=== PATIENT | male | born 1980 | race Caucasian/White ===

== ENCOUNTER → 2022-01-09 14:13 | Outpatient (CLI) | payer OTHER, SELFPAY ==
[2022-01-09 16:06] LABS: Alanine Aminotransferase 81 U/L (12-78); Albumin Level 4.4 g/dl (3.5-5.0); Albumin/Globulin Ratio 1.7 (1.1-1.8); Alkaline Phosphatase 87 U/L (38-126); Anion Gap 10.6 mEq/L (5-15); Aspartate Amino Transferase 52 U/L (17-59); Bilirubin,Total 0.2 mg/dl (0.2-1.3); Blood Urea Nitrogen 7 mg/dl (9-20); Calcium 9.5 mg/dl (8.4-10.2); Carbon Dioxide 28 mmol/L (22.0-30.0); Chloride 105 mmol/L (98-107); Estimated Glomerular Filt Rate 82 ml/min (>60); GFR (African American) 99 ML/MIN (>60); Globulin 2.6 g/dL (1.3-3.2); Glucose 106 mg/dl (74-100); Potassium 4.6 mmoL/L (3.5-5.1); Sodium 139 mmol/L (136-145)
[2022-01-09 16:09] LABS: Hemoglobin A1C 5.6 % (4.0-6.0)
[2022-01-09 16:24] LABS: Free Thyroxine Index 2.4 ug/dL (5.93-13.13); T4 (Thyroxine) 7.3 ug/dl (5.53-11.0); Triiodothryronine (T3) Uptake 33 % (23.5-40.5)
[2022-01-09 16:38] LABS: Thyroid Stimulating Hormone 3.07 uIU/mL (0.465-4.68)
[2022-01-09 18:26] LABS: Basophils # 0.1 K/mm3 (0-0.2); Basophils % 1.4 % (0.1-2.0); Eosinophils # 0.2 K/mm3 (0.0-0.4); Eosinophils % 3.1 % (0.1-12.0); Hematocrit 48.2 % (42.0-52.0); Lymphocytes # 2.3 K/mm3 (0.7-4.5); Lymphocytes % 45.2 % (10-50); Mean Corpuscular HGB Conc 33.3 g/dL (31.8-35.4); Mean Corpuscular Hemoglobin 31.5 pg (27.0-31.2); Mean Corpuscular Volume 94.6 fl (80-94); Mean Platelet Volume 12.8 fl (7.4-10.4); Monocytes # 0.4 K/mm3 (0.1-1.0); Monocytes % 7.9 % (1.7-9.3); Neutrophils # 2.2 K/mm3 (1.8-7.8); Neutrophils % 42.5 % (37.0-80.0); Platelet Count 167 K/mm3 (142-424); Red Cell Distribution Width 12.9 % (11.5-17.5); White Blood Count 5.1 K/mm3 (4.8-10.8)
[2022-01-09 18:31] LABS: Iron 121 ug/dL (49-181)
[2022-01-09 18:41] LABS: Total Iron Binding Capacity 325 ug/dL (261-462)
[2022-01-09 18:45] LABS: Vitamin B12 358 pg/mL (239-931)
[2022-01-11 09:20] LABS: Progesterone 0.2 ng/mL (0.0-0.5)
[2022-01-14 20:10] LABS: Testosterone, Total, LC/MS 390.8 ng/dL (264.0-916.0); Testosterone,Free 13.4 pg/mL (6.8-21.5)
[2022-01-18 19:34] LABS: 1,25 Dihydroxy Vitamin D 37 pg/mL (.); 1,25-Dihydroxy, Vitamin D-2 <10 pg/mL (.); 1,25-Dihydroxy, Vitamin D-3 37 pg/mL (.)
== END ==
PROVIDERS: PCP Pediatrics; Visit Provider Nurse Practitioner Psychiatric/Mental Health
DX: Z00.00 Encounter for general adult medical examination without abnormal findings (principal); R53.83 Other fatigue; Z79.899 Other long term (current) drug therapy
CPT/HCPCS: 36415; 80053; 82607; 82652; 83036; 83540; 83550; 84144; 84402; 84403; 84436; 84443; 84479; 85025

== ENCOUNTER → 2023-01-06 16:23 | Outpatient (CLI) | payer OTHER, SELFPAY ==
[2023-01-06 12:49] LABS: Basophils % 0.5 % (0.1-2.0); Eosinophils # 0.1 K/mm3 (0.0-0.4); Eosinophils % 1.3 % (0.1-12.0); Hematocrit 46.3 % (42.0-52.0); Hemoglobin 15.6 g/dL (14.1-18.0); Lymphocytes # 2.6 K/mm3 (0.7-4.5); Lymphocytes % 39.1 % (10-50); Mean Corpuscular HGB Conc 33.6 g/dL (31.8-35.4); Mean Corpuscular Hemoglobin 31.1 pg (27.0-31.2); Mean Corpuscular Volume 92.6 fl (80-94); Mean Platelet Volume 11.9 fl (7.4-10.4); Monocytes # 0.4 K/mm3 (0.1-1.0); Monocytes % 5.7 % (1.7-9.3); Neutrophils # 3.5 K/mm3 (1.8-7.8); Neutrophils % 53.3 % (37.0-80.0); Platelet Count 160 K/mm3 (142-424); White Blood Count 6.5 K/mm3 (4.8-10.8)
[2023-01-06 13:33] LABS: Chloride 103 mmol/L (98-107); Potassium 4.4 mmoL/L (3.5-5.1); Sodium 137 mmol/L (136-145)
[2023-01-06 13:36] LABS: Alanine Aminotransferase 61 U/L (12-78); Albumin Level 4.7 g/dl (3.5-5.0); Albumin/Globulin Ratio 1.6 (1.1-1.8); Alkaline Phosphatase 78 U/L (38-126); Anion Gap 11.4 mEq/L (5-15); Aspartate Amino Transferase 48 U/L (17-59); Bilirubin,Total 0.7 mg/dl (0.2-1.3); Blood Urea Nitrogen 11 mg/dl (9-20); Carbon Dioxide 27 mmol/L (22.0-30.0); Cholesterol 250 mg/dl (140-200); Estimated Glomerular Filt Rate 92 ml/min (>60); GFR (African American) 111 ML/MIN (>60); Globulin 2.9 g/dL (1.3-3.2); Total Protein,Serum 7.6 g/dl (6.3-8.2); Triglycerides 103 mg/dl (30-150); VLDL Cholesterol 21 mg/dL (0-40)
[2023-01-06 13:37] LABS: Calcium 9.1 mg/dl (8.4-10.2); Chol/HDL Ratio 5.7 (1-3.5); Glucose 103 mg/dl (74-100); HDL Cholesterol 44 mg/dl (40-60)
[2023-01-06 13:48] LABS: Direct LDL Cholesterol 160.86 mg/dL (100-129)
[2023-01-06 13:53] LABS: 25-OH Vitamin D, Total 28.2 ng/mL (30-100)
[2023-01-06 14:08] LABS: Thyroid Stimulating Hormone 2.34 uIU/mL (0.465-4.68)
[2023-01-06 14:11] LABS: Prostate Specific Ag Screen 0.5 ng/ml (0.0-4.0)
[2023-01-06 14:30] LABS: Vitamin B12 441 pg/mL (239-931)
== END ==
LOC: LAB.DROPOF 16:23
PROVIDERS: PCP Physician Assistant; Visit Provider Physician Assistant
DX: R42 Dizziness and giddiness (principal); E55.9 Vitamin D deficiency, unspecified; Z79.899 Other long term (current) drug therapy; Z12.5 Encounter for screening for malignant neoplasm of prostate
CPT/HCPCS: 80053; 80061; 82306; 82607; 84443; 85025; G0103

== ENCOUNTER → 2023-01-14 08:36 | Day surgery (SDC) | payer OTHER, SELFPAY ==
--- NOTE | 2023-01-14 08:41 | CA_ITS ---
APPROVED REPORT EXAM: Comprehensive 2D, Doppler, and color-flow Echocardiogram Silk Finisher: Leah Munoz, RCS, RVS Ht: 6 ft 0 in Wt: 272lbs BSA: 2.43 BP: 136/84 mmHg Indications: vertigo, exsmoker 2D Dimensions Aortic Root 3.32 cm LA Volume 67.50 mL Left Atrium 4.57 cm LA Volume Index 27.80 mL/m2 (M/F) 16-34 RVID Base (AP4) 3.54 cm (M/F) 2.5-4.1 EF AP4 54.90 % LVOT 2.32 cm (M/F) 1.5-2.5 GL Strain -17.0 % M-Mode Dimensions RVDd 2.06 cm (0.9-2.6) LVDd 5.56 cm (3.5-5.7) Ao Diam 3.24 cm (2.0-3.7) LVDs 3.85 cm (3.5-5.7) IVSd 0.99 cm (0.6-1.1) PWd 0.88 cm (0.6-1.1) EF (Teich) 57.70% EPSs 0.34 cm FS 30.80% EDV (Teich) 151.20 mL TAPSE 1.93 (<1.7) ESV (Teich) 63.90 mL LV Diastology E Decel Time 167 (160-240 msec) E/A Ratio 1.67 MED E' 7.0 (>= 7 cm/sec) MED A' 8.70 cm/s E'/MED E' Ratio 8.86 (<= 14) LAT E' 6.8 (>= 10 cm/sec) LAT A' 10.10 cm/s E/LAT E' Ratio 9.12 (<= 14) Aortic Valve LVOT Max 86.0 (70-110 cm/s) NIECY Index 1.49 cm2/m2 LVOT VTI 17.50 cm AoV Peak Tony. 110.0 (50-130 cm/s) AO Mean GR. 2.50 (<5 mmHg) AO VTI 20.4 (18-25 cm) NIECY (VTI) 3.63 (2.5-4.5 cm2) Mitral Valve MV E Max Tony. 62.0 (40-130 cm/s) MV A Velocity 37.0 (40-130 cm/s) E/A Ratio 1.67 MV Decel. Time 167 (160-240 ms) Left Ventricle The left ventricle is normal size. The left ventricular systolic function is normal. The left ventricular ejection fraction is within the normal range. There is marked increase in LV wall thickness (IVSd 1.8 cm). There is no LVOT gradient at rest. There is normal LV segmental wall motion. Diastolic function is indeterminate. LVEF is 55%. Right Ventricle The right ventricle is normal size. The right ventricular systolic function is normal. Atria The left atrium size is normal. The right atrium size is normal. There is no Doppler evidence of interatrial shunt. Aortic Valve The aortic valve opens well. There is no aortic valvular stenosis. Trace aortic regurgitation. Mitral Valve The mitral valve is normal in structure. No evidence of mitral valve stenosis. Trace mitral regurgitation. Tricuspid Valve The tricuspid valve leaflets are thin and pliable. Trace tricuspid regurgitation. There is insufficient TR jet to estimate RVSP. Great Vessels IVC is normal in size and collapses >50% with inspiration. Other Information Study Quality: Fair Conclusion Normal biventricular systolic function. Marked increase in LV wall thickness (IVSd 1.8 cm). No significant valvular stenosis or regurgitation. Due to the marked and asymmetric increase in LV wall thickness, further evaluation to rule out HCM with cardiac MRI (HCM protocol) is recommended. Electronically signed by : Mabel Fuentes MD 01/16/2023 22:06:29
[2023-01-14 10:09] VITALS: BMI 36.6
[2023-01-14 10:13] VITALS: BP 164/79; PULSE 74; RESP 17; TEMP 37.2; O2SAT 94
--- NOTE | 2023-01-14 12:23 | EXP.TILT ---
Findings:: PROCEDURE: Tilt Table Test REQUESTING PROVIDER: Jessica Fenton PA-C INDICATION: Recurrent dizziness, orthostatic hypotension based on office blood blood pressures BETA BLOCKERS: None PRE-TEST VITAL SIGNS (supine position): BP 167/77, HR 70 and sinus rhythm, Oxygen Saturation 97% PROCEDURE SUMMARY: Patient was prepped per protocol, IV started, connected to heart, blood pressure and oxygen saturation monitors and safety straps applied. He was then tilted upright at 70 degrees for a total of approximately 14 minutes. Test was terminated at that point due to patient's symptoms and drop in blood pressure and heart rate. After initially being raised upright, his BP dropped to 143/92 and HR increased to 92 bpm, but he remained asymptomatic. Five minutes later (after being upright for 5 minutes) his BP was 160/92 and HR was 86 bpm with still no symptoms. Five minutes later (after 10 minutes upright) his BP was 136/83 and HR was 86 bpm. Two minutes later (after 12 minutes upright) he complained of nausea and dizziness and was noted to be pale and diaphoretic with a drop in both BP (to 106/36) and HR (to 61 bpm). His symptoms were worsening so he was returned to the supine position, which was approximately 14 minutes after being placed upright. After being returned to the supine position his symptoms resolved and BP fay to 134/75 and HR increased to 68 bpm. After several more minutes supine his BP was 142/80 and HR was 77 bpm. He remained in a sinus rhythm throughout and O2Sats ranged from 93 to 94%. CONCLUSIONS: Abnormal tilt table test with evidence of orthostatic hypotension. Asymptomatic 24 mmHg drop in systolic blood pressure upon initially being raised upright, followed several minutes later, by a more dramatic and symptomatic drop in both systolic and diastolic blood pressure, as well as heart rate.
== END ==
LOC: RT 08:37
PROVIDERS: PCP Physician Assistant; Visit Provider Physician Assistant
DX: R42 Dizziness and giddiness (principal)
CPT/HCPCS: 93306

== ENCOUNTER 2023-03-24 10:23 | Outpatient (CLI) | payer OTHER, SELFPAY ==
--- NOTE | 2023-03-24 10:27 | XR_ITS ---
FINAL REPORT TECHNIQUE: AP and lateral views left elbow CLINICAL HISTORY: Left elbow pain COMPARISON: None FINDINGS: LEFT ELBOW: No acute bony abnormality is identified. No evidence of fracture or dislocation is seen. No significant joint effusion is present. The soft tissues are unremarkable. IMPRESSION: Unremarkable left elbow films. Reviewed, Interpreted and Dictated by Nj Aranda III, MD Transcribed by Leah Mccurdy Authenticated and [facility]
== END 2023-03-24 23:59 ==
LOC: RAD 10:24
PROVIDERS: PCP Internal Medicine; Visit Provider Internal Medicine
DX: M25.522 Pain in left elbow (principal)
CPT/HCPCS: 73070

== ENCOUNTER 2023-05-28 08:00 | Outpatient (RCR) | payer OTHER, SELFPAY | END 2023-05-28 08:05 | disposition home or self-care (01) | LOC: OT 08:00 | PROVIDERS: Visit Provider Internal Medicine | DX: M25.522 Pain in left elbow (principal) | CPT/HCPCS: 97165 ==

== ENCOUNTER 2023-08-25 14:37 | Outpatient (CLI) | payer OTHER, SELFPAY ==
[2023-08-25 15:17] LABS: Basophils # 0.1 K/mm3 (0-0.2); Basophils % 1.1 % (0.1-2.0); Eosinophils # 0.2 K/mm3 (0.0-0.4); Hematocrit 46.5 % (42.0-52.0); Hemoglobin 15.9 g/dL (14.1-18.0); Lymphocytes # 3.2 K/mm3 (0.7-4.5); Lymphocytes % 42.1 % (10-50); Mean Corpuscular HGB Conc 34.3 g/dL (31.8-35.4); Mean Corpuscular Hemoglobin 31.5 pg (27.0-31.2); Mean Platelet Volume 11.2 fl (7.4-10.4); Monocytes # 0.5 K/mm3 (0.1-1.0); Monocytes % 6.9 % (1.7-9.3); Neutrophils # 3.6 K/mm3 (1.8-7.8); Neutrophils % 46.9 % (37.0-80.0); Platelet Count 187 K/mm3 (142-424); Red Blood Count 5.06 M/mm3 (4.60-6.20); Red Cell Distribution Width 13.4 % (11.5-17.5); White Blood Count 7.7 K/mm3 (4.8-10.8)
[2023-08-25 15:52] LABS: Alanine Aminotransferase 79 U/L (12-78); Albumin Level 4.4 g/dl (3.5-5.0); Alkaline Phosphatase 73 U/L (38-126); Anion Gap 10.4 mEq/L (5-15); Aspartate Amino Transferase 45 U/L (17-59); Bilirubin,Indirect 0.4 mg/dL (0.0-0.9); Bilirubin,Total 0.4 mg/dl (0.2-1.3); Bilirubin,Unconjugated 0.5 mg/dL (0.0-1.1); Blood Urea Nitrogen 13 mg/dl (9-20); Calcium 9.7 mg/dl (8.4-10.2); Carbon Dioxide 27 mmol/L (22.0-30.0); Chloride 107 mmol/L (98-107); Chol/HDL Ratio 5.4 (1-3.5); Cholesterol 312 mg/dl (140-200); Estimated Glomerular Filt Rate 92 ml/min (>60); GFR (African American) 111 ML/MIN (>60); Glucose 95 mg/dl (74-100); HDL Cholesterol 58 mg/dl (40-60); Potassium 4.4 mmoL/L (3.5-5.1); Sodium 140 mmol/L (136-145); Total Protein,Serum 7.4 g/dl (6.3-8.2); Triglycerides 232 mg/dl (30-150); VLDL Cholesterol 46 mg/dL (0-40)
[2023-08-25 16:03] LABS: Direct LDL Cholesterol 216.86 mg/dL (100-129)
== END 2023-08-25 23:59 | disposition home or self-care (01) ==
PROVIDERS: PCP Internal Medicine; Visit Provider Nurse Practitioner
DX: E78.5 Hyperlipidemia, unspecified (principal)
CPT/HCPCS: 36415; 80048; 80061; 80076; 85025

== ENCOUNTER → 2023-09-17 07:41 | Outpatient (CLI) | payer OTHER, SELFPAY | LOC: SL 07:42 | PROVIDERS: PCP Internal Medicine; Visit Provider Specialist | DX: G47.33 Obstructive sleep apnea (adult) (pediatric) (principal) | CPT/HCPCS: G0399 ==

== ENCOUNTER 2023-10-05 06:18 | Outpatient (CLI) | payer OTHER, SELFPAY ==
--- NOTE | 2023-10-05 | CA_ITS ---
APPROVED REPORT Exam: Exercise Treadmill Technologist: Olga Klein, Ht: 6 ft 0 in Wt: 292 lbs BSA: 2.50 m2 HR: 76 bpm BP: 134/89 mmHg Rhythm: SR Medical History Medications: Xanax,,,,, Epinephrine,,,,, Vraylar,,,,, Cardiac Risk Factors: HTN, Hyperlipidemia, Smoking Stress Test Details Test: Pooja HR Resting HR: 80 bpm Max Heart Rate (APMHR): 176 bpm Max HR Achieved: 160 bpm Target HR (85% APMHR): 150 bpm % of APMHR: 91 Recovery HR: 116 bpm HR response to stress: Normal HR response to stress BP Resting BP: 138.0/85.0 mmHg Max BP: 187.0/85.0 mmHg Recovery BP: 177.0/85.0 mmHg BP response to stress: Normal blood pressure response to stress. ECG Resting ECG: SR Stress EC.[address] depression Arrhythmia: None Recovery ECG: return to baseline within 3 minutes of recovery Clinical Exercise duration: 05:39 min Highest Stage Achieved: Exercise capacity: 7.0 METs Overall Exercise Capacity for Age: Fair Stress ECG Conclusion During pooja protocol pt experinced dyspnea and fatigue. No arrhythmias noted. ST changes: 0.[address] depression Conclusion: Fair exercise capacity compared to age and sex matched peers. No ECG changes suggestive of ischemia at peak stress. Myoview images reported separately. Test Summary REST . . . . . . . Sitting REST . . . . . . . Standing REST 10:05 0.0 0.0 80 . 138/ 85 . . Stage 1 01:00 10.0 1.7 116 . . . . Stage 1 02:00 10.0 1.7 130 . . . . Stage 1 03:00 10.0 1.7 133 . 141/ 73 . . Stage 2 01:00 12.0 2.5 149 . . . . Stage 2 02:00 12.0 2.5 155 . . . . Stage 2 02:39 12.0 2.5 158 . . . Stop exercise at 05:39 RECOVERY 01:00 0.0 0.0 140 . . . . RECOVERY 02:00 0.0 0.0 126 . . . . RECOVERY 03:00 0.0 0.0 116 . . . . RECOVERY 04:00 0.0 0.0 105 . . . . RECOVERY 05:00 0.0 0.0 99 . 187/ 85 . . RECOVERY 06:00 0.0 0.0 104 . 133/ 82 . . RECOVERY 06:09 0.0 0.0 102 . 133/ 82 . . Electronically signed by : Mabel Fuentes MD 10/06/2023 13:52:07
--- NOTE | 2023-10-05 06:22 | NM_ITS ---
APPROVED REPORT Exam: Nuclear Stress Test Indication: SOB, Abnormal EKG, Fatigue, HTN, High cholesterol, Family history Patient Location: Outpatient Stress Tech: Olga BERRY Tech:Cristina Shah, ARRT, RT (R)(N) Ht: 6 ft 0 in Wt: 295 lbs HR: 80 bpm BP: 138/85 mmHg BSA: 2.51 m2 TID: 1.04 History: SOB, Abnormal EKG, Fatigue, HTN, High cholesterol, Family history Procedure: Patient exercised on Satya protocol 5:39 minutes and sec, resting heart rate 80 bpm, resting blood pressure 138/85 mmHg, with exercise maximum heart rate achived was 160 bpm which is 91 % of the maximum predicted heart rate and blood pressure was 187/85 mmHg. Test was stopped due to SOB. Patient denied any complaint of chest pain. Patient has fair exercise capacity, achieved 7.0 METs of workload on treadmill, the blood pressure response to exercise was normal. Cardiac Stress and Resting SPECT Images: Cardiac Stress and Resting SPECT images were obtained using technetium 99m Myoview 31.5 mCi stress and 10.58 mCi at rest. Raw images demonstrate significant diaphragmatic overlap with the inferior border of the LV wall. This may affect the diagnostic interpretation of the study findings. Resting and stress imaging in supine positions demonstrate small sized, mild, fixed perfusion defect in the inferior LV wall. This is no longer visualized with prone stress imaging. Findings are suggestive of diaphragmatic attenuation. Gated imaging demonstrates normal global and regional LV systolic function. LVEF is calculated at 68%. Conclusion: Diaphragmatic attenuation is present. Fixed or reversible perfusion defects. Gated imaging demonstrates normal global and regional LV systolic function. LVEF is calculated at 68%. Electronically signed by : Mabel Fuentes MD 10/06/2023 13:54:07
[2023-10-05] MEDS: ISOTOPE MYOVIEW (PER STUDY) 1 DOSE IV (08:41)
[2023-10-05] MEDS: SODIUM CHLORIDE 0.9% 10ML SYR (RAD ONLY) 10 ML IV ×2 (08:41)
== END 2023-10-05 23:59 | disposition home or self-care (01) ==
LOC: RAD 06:18
PROVIDERS: PCP Internal Medicine; Visit Provider Nurse Practitioner
DX: R93.1 Abnormal findings on diagnostic imaging of heart and coronary circulation (principal); R94.31 Abnormal electrocardiogram [ECG] [EKG]; E78.5 Hyperlipidemia, unspecified; Z87.891 Personal history of nicotine dependence
CPT/HCPCS: 78452; 93017; 93018; A9502

== ENCOUNTER 2023-10-19 10:23 | Outpatient (CLI) | payer OTHER, SELFPAY ==
[2023-10-19 11:06] LABS: Blood Urea Nitrogen 10 mg/dl (9-20); Estimated Glomerular Filt Rate 92 ml/min (>60); GFR (African American) 111 ML/MIN (>60)
== END 2023-10-19 23:59 | disposition home or self-care (01) ==
LOC: RAD 10:24
PROVIDERS: PCP Internal Medicine; Visit Provider Nurse Practitioner
DX: R93.1 Abnormal findings on diagnostic imaging of heart and coronary circulation (principal); E78.5 Hyperlipidemia, unspecified
CPT/HCPCS: 36415; 82565; 84520

== ENCOUNTER 2023-12-08 12:32 | Outpatient (CLI) | payer OTHER, SELFPAY ==
--- NOTE | 2023-12-08 12:36 | XR_ITS ---
PROCEDURE INFORMATION: Exam: XR Left Foot Complete; Alignment Exam date and time: 12/08/2023 12:41 PM Age: 43 years old Clinical indication: Pain; Foot; Left; Additional info: Foot pain TECHNIQUE: Imaging protocol: Radiologic exam of the left foot. Views: 3 or more views. COMPARISON: No relevant prior studies available. FINDINGS: Limitations: 1 of the 3 views is limited due to technical factors. Bones/joints: Normal. No acute fracture. Mild degenerative changes 1st MTP joint otherwise joint spaces are preserved. No dislocation or subluxation. Small spur arising the posterior aspect of the calcaneus. Soft tissues: Normal. IMPRESSION: Limited study. No acute bony abnormalities.
--- NOTE | 2023-12-08 12:36 | XR_ITS ---
PROCEDURE INFORMATION: Exam: XR Right Foot Complete; Alignment Exam date and time: 12/08/2023 12:41 PM Age: 43 years old Clinical indication: Pain; Foot; Right; Additional info: Foot pain TECHNIQUE: Imaging protocol: Radiologic exam of the right foot. Views: 3 or more views. COMPARISON: No relevant prior studies available. FINDINGS: Bones/joints: Normal. No acute fracture. Joint spaces are preserved. No dislocation or subluxation. Small spur arising the posterior aspect of the calcaneus. Soft tissues: Normal. IMPRESSION: No acute bony abnormalities.
== END 2023-12-08 23:59 | disposition home or self-care (01) ==
LOC: RAD 12:33
PROVIDERS: PCP Internal Medicine; Visit Provider Internal Medicine
DX: M79.671 Pain in right foot (principal); M79.672 Pain in left foot
CPT/HCPCS: 73630